=== PATIENT | female | born 1990 | race Asian ===

== ENCOUNTER 2018-04-10 06:08 | Emergency (ER) | payer OTHER ==
[2018-04-10 06:22] VITALS: BP 107/66
--- NOTE | 2018-04-10 07:48 | ED ---
HPI Febrile Illness - HPI Summary HPI Summary: Patient is an otherwise healthy 27-year-old female presenting to the ED with acute onset of fever, headache and neck pain early this morning around 1 AM. She states she is feeling much improved, but wanted to make sure she did not have an infection. She denies any photophobia. Denies any chest pain, shortness of breath, abdominal pain, nausea, vomiting, diarrhea, constipation. She states she is otherwise healthy and takes no medications. No significant PMH. is at bedside who is currently translating. Headache is 4/10, and located over the temples. She has never had anything like this before. Denies travel or sick contacts. She endorses some neck stiffness, but denies any limitations with mobility. Denies any body aches. - History of Current Complaint Chief Complaint: EDGeneral Time Seen by Provider: 04/10/18 06:34 Hx Obtained From: Patient Onset/Duration: Started Hours Ago Timing: Constant Initial Severity: Moderate Current Severity: Mild Pain Intensity: 4 Pain Scale Used: 0-10 Numeric Aggravating Factors: Nothing Alleviating Factors: Nothing Associated Signs and Symptoms: Chills, Diaphoresis, Headache, Stiff Neck - Risk Factors Pseudomonas Risk Factors: Negative Serious Bacterial Infection Risk Factors: Negative - Allergy/Home Medications Allergies/Adverse Reactions: Allergies Allergy/AdvReac Type Severity Reaction Status Date / Time No Known Allergies Allergy Verified 04/10/18 06:19 PMH/Surg Hx/FS Hx/Imm Hx Previously Healthy: Yes - Immunization History Hx Pertussis Vaccination: No Immunizations Up to Date: Yes Infectious Disease History: No Infectious Disease History: Denies: Traveled Outside the [place] in Last 30 Days - Social History Occupation: Unemployed Lives: With Family Alcohol Use: Rare Hx Substance Use: No Substance Use Type: Reports: None Hx Tobacco Use: No Smoking Status (MU): Never Smoked Tobacco Review of Systems Positive: Fever, Chills, Skin Diaphoresis Negative: Photophobia, Blurred Vision, Diplopia, Drainage Negative: Sore Throat, Nasal Discharge Negative: Palpitations, Chest Pain Negative: Shortness Of Breath, Cough Negative: Abdominal Pain, Vomiting, Diarrhea, Nausea Genitourinary: Negative Positive: no symptoms reported, see HPI Positive: Arthralgia - neck stiffness. Negative: Myalgia Skin: Negative Positive: Headache. Negative: Weakness, Paresthesia, Numbness Psychological: Normal All Other Systems Reviewed And Are Negative: Yes Physical Exam Triage Information Reviewed: Yes Vital Signs On Initial Exam: Initial Vitals Temp Pulse Resp BP Pulse Ox 97.1 F 82 16 107/66 97 04/10/18 06:17 04/10/18 06:17 04/10/18 06:17 04/10/18 06:17 04/10/18 06:17 Vital Signs Reviewed: Yes Appearance: Positive: Well-Appearing, Well-Nourished Skin: Positive: Skin Color Reflects Adequate Perfusion Head/Face: Positive: Normal Head/Face Inspection Eyes: Positive: EOMI, YULIYA, Conjunctiva Clear Neck: Positive: Supple, No Lymphadenopathy Respiratory/Lung Sounds: Positive: Clear to Auscultation, Breath Sounds Present Cardiovascular: Positive: RRR, Pulses are Symmetrical in both Upper and Lower Extremities. Negative: Leg Edema Left, Leg Edema Right Abdomen Description: Positive: Nontender, No Organomegaly, Soft Bowel Sounds: Positive: Present Musculoskeletal: Positive: Normal, Strength/ROM Intact Neurological: Positive: Sensory/Motor Intact, Alert, Oriented to Person Place, Time, Speech Normal Psychiatric: Positive: Normal, Affect/Mood Appropriate AVPU Assessment: Alert Diagnostics - Vital Signs Vital Signs Temp Pulse Resp BP Pulse Ox 04/10/18 06:17 97.1 F 82 16 107/66 97 - Laboratory Result Diagrams: 04/10/18 07:39 Lab Statement: Any lab studies that have been ordered have been reviewed, and results considered in the medical decision making process. Course/Dx - Course Course Of Treatment: During the course treatment, the patient is evaluated for acute onset fever at 1 AM. On arrival her vital signs are stable and she is afebrile. On physical examination, patient is slightly diaphoretic, however is nontoxic appearing. Lungs CTA. RRR. Moist mucous membranes. No abdominal pain on deep palpation throughout. Good neck mobility no stiffness identified. Negative Brudzinski's. Discussed treatment options with patient and patient declines fluids. She would however like some blood work. She declines any Tylenol or ibuprofen. - Febrile Illness Differential Diagnoses: Fever of Unknown Origin - Diagnoses Provider Diagnoses: Fever Discharge - Sign-Out/Discharge Documenting (check all that apply): Patient Departure - Discharge Plan Condition: Stable Disposition: HOME Patient Education Materials: Fever in Adults (ED) Referrals: No Primary Care Phys,NOPCP [Primary Care Provider] - Additional Instructions: If you develop any worsening symptoms, fever, sensitivity to the light, stiff neck, return to the ED immediately Tylenol 650 mg 3 times daily 2 days (this may be purchased [id number] at a store) If you improve over the next few days, you do not need to return to the ED Rest, drink plenty of water and gatorade Drew diet, chicken noodle soup, rice. - Billing Disposition and Condition Condition: STABLE Disposition: Home
[2018-04-10 07:57] LABS: ABS Basophils 0 10^3/ul (0-0.2); ABS Eosinophils 0 10^3/ul (0-0.6); ABS Lymphocytes 0.4 10^3/ul (1.0-4.8); ABS Monocytes 0.7 10^3/ul (0-0.8); ABS Neutrophils 10.1 10^3/ul (1.5-7.7); ABS Nucleated RBC 0 10^3/ul; Eosinophil % 0 % (0-6); Hematocrit 35 % (35-47); Hemoglobin 11.8 g/dl (12.0-16.0); Lymphocyte % 3.8 % (25-47); Mean Corpuscular HGB Conc 33 g/dl (31-36); Mean Corpuscular Hemoglobin 30 pg (27-31); Mean Corpuscular Volume 90 fL (80-97); Mean Platelet Volume 8.2 fL (7.4-10.4); Nucleated Red Blood Cells % 0; Platelet Count 169 10^3/ul (150-450); Red Blood Count 3.91 10^6/ul (4.00-5.40); Red Cell Distribution Width 14 % (10.5-15); White Blood Count 11.2 10^3/ul (3.5-10.8)
[2018-04-10 08:49] LABS: EGFR Non-African American 94.3 (>60)
== END 2018-04-10 08:37 | disposition home or self-care (01) ==
LOC: ED 06:08
DX: R50.9 Fever, unspecified (principal)
CPT/HCPCS: 36415; 80053; 85025; 86140; 99282

== ENCOUNTER 2018-04-11 12:14 | Emergency (ER) | payer OTHER ==
--- NOTE | 2018-04-11 13:07 | UC ---
Abdominal Pain Female HPI - HPI Summary HPI Summary: 27 yo female presents with fever and RUQ abdominal pain and right flank pain. Pt does not speak Bulgarian, therefore the history and interview is aided by her friend with her today acting as her supply chain tech. She tells me that she began to feel sick yesterday. She had a temp of 40C and vomited once. She went to the ED and was found to be afebrile with a slightly elevated CRP and WBC. Influenza swab was negative. It was suspected she had a viral illness. Today she presents to the UC with fever and RUQ and right flank pain. She has not taken anything OTC for her symptoms. She is eating and drinking well. Denies SOB, chest pain, n /v, dysuria, vaginal bleeding or discharge. 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 Hx Last Menstrual Period: 04/10/18 Onset/Duration: Gradual Onset Severity Initially: Mild Severity Currently: Moderate Pain Intensity: 6 Pain Scale Used: 0-10 Numeric Allergies/Adverse Reactions: Allergies Allergy/AdvReac Type Severity Reaction Status Date / Time No Known Allergies Allergy Verified 04/11/18 12:54 Home Medications: Home Medications Acetaminophen [APAP] 325 mg PO ONCE PRN 04/11/18 [History Confirmed 04/11/18] PMH/Surg Hx/FS Hx/Imm Hx - Additional Past Medical History Additional PMH: None - Surgical History Surgical History: None - Family History Known Family History: Positive: None - Social History Lives: With Family Alcohol Use: Occasionally Substance Use Type: None Smoking Status (MU): Never Smoked Tobacco Review of Systems Constitutional: Fever Skin: Negative Eyes: Negative ENT: Negative Respiratory: Negative Cardiovascular: Negative Gastrointestinal: Abdominal Pain Genitourinary: Other - Right flank pain Musculoskeletal: Negative Neurological: Negative Psychological: Negative All Other Systems Reviewed And Are Negative: Yes Physical Exam - Summary Physical Exam Summary: GENERAL: NAD. Mild pain distress SKIN: No rashes, sores, lesions, or open wounds. NECK: Supple. Nontender. No lymphadenopathy. CHEST: CTAB. No r/r/w. No accessory muscle use. Breathing comfortably and in no distress. CV: RRR. Without m/r/g. Pulses intact. Cap refill <2seconds ABDOMEN: Mild RUQ TTP. Mild right CVA TTP. Soft. No distention or guarding. No organomegaly. Bowel sounds present NEURO: Alert. PSYCH: Age appropriate behavior. Triage Information Reviewed: Yes Vital Signs: Initial Vital Signs Temp 101.7 F 04/11/18 12:48 Pulse 94 04/11/18 12:48 Resp 18 04/11/18 12:48 BP 112/66 04/11/18 12:48 Pulse Ox 99 04/11/18 12:48 Laboratory Tests 04/11/18 13:47 POC Urine Color Yellow POC Urine Clarity Cloudy POC Urine pH 6.0 POC Ur Specif [place] <= 1.005 L POC Urine Protein Negative POC Ur Glucose (UA) Negative POC Urine Ketones Negative POC Urine Blood 2+ A POC Urine Nitrite Positive A POC Urine Bilirubin Negative POC Urine Urobilinogen 0.2 POC U Leukocyte Esteras 1+ A Vital Signs: Temp Pulse Resp BP Pulse Ox 100.7 F 70 18 98/55 100 04/11/18 15:56 04/11/18 15:56 04/11/18 15:56 04/11/18 15:56 04/11/18 15:56 Vital Signs Reviewed: Yes Abd Pain Female Course/Dx - Course Course Of Treatment: CT: IMPRESSION: Normal appendix. There is a large structure adjacent to the uterus likely. representing an enlarged right ovary measuring up to 6.3 x 4.6 cm. Free fluid is noted in the pelvis. UA with signs of infection. Urine was negative. CT without visulized calculi. Therefore, I suspect she has pyelonephritis or an ascending UTI. In the clinic she was given 1L NS with 1gm Ceftriaxone for pyelonephritis. Toradol 30mg for her headache/discomfort and Tylenol 650mg for her fever. She had significant improvement of her symptoms and reported no pain. Temperature improved to 100.7F. Pt appeared well and was more comfortable and smiling. Will dc her with dx of pyelonephritis and rx for cipro. Advised to alternate tylenol/ibuprofen for her fever and discomfort. Strongly advised that if her symptoms worsen or if she develops new symptoms - to go to the ED. Pt verbalized understanding. - Differential Dx/Diagnosis Provider Diagnoses: Pyelonephritis Discharge - Sign-Out/Discharge Documenting (check all that apply): Patient Departure All imaging exams completed and their final reports reviewed: Yes - Discharge Plan Condition: Stable Disposition: HOME Prescriptions: Ciprofloxacin HCl [Cipro] 500 mg PO BID #14 tablet Patient Education Materials: Urinary Tract Infection in Women (ED), Kidney Infection (ED) Referrals: No Primary Care Phys,NOPCP [Primary Care Provider] - Additional Instructions: If you develop a fever, shortness of breath, chest pain, new or worsening symptoms - please call your PCP or go to the ED. 1) Continue to take tylenol alternating with ibuprofen for fever and discomfort 2) If your fever or pain worsen - please go to the ER for further evaluation - Billing Disposition and Condition Condition: STABLE Disposition: Home
[2018-04-11] MEDS ORDERED: Ibuprofen TAB* 400 MG PO ONE (13:25)
[2018-04-11] MEDS ORDERED: Ketorolac INJ* 30 MG/ML 1 ML VIAL IV PUSH ONE (13:57)
[2018-04-11] MEDS ORDERED: cefTRIAXone VIAL(*) 1,000 MG VIAL IVPB ONE (13:57)
[2018-04-11] MEDS ORDERED: NS 0.9% 1000 ML* 1,000 ML IV ONE (13:57)
[2018-04-11] MEDS ORDERED: Acetaminophen TAB* 325 MG PO ONE (14:04)
[2018-04-11 16:30] VITALS: BP 99/59
== END 2018-04-11 16:30 | disposition home or self-care (01) ==
LOC: UCEAST 12:14
DX: N10 Acute pyelonephritis (principal); Z32.02 Encounter for pregnancy test, result negative
CPT/HCPCS: 74176; 81003; 84702; 87077; 87086; 87186; 96361; 96365; 96376; 99212; A9270-GY; G0463; J0696; J1885

== ENCOUNTER 2018-04-12 14:10 | Emergency (ER) | payer OTHER ==
[2018-04-12] MEDS ORDERED: Ketorolac INJ* 30 MG/ML 1 ML VIAL IV PUSH ONE (14:40)
[2018-04-12] MEDS ORDERED: NS 0.9% 1000 ML* 1,000 ML IV ONE (14:40)
[2018-04-12] MEDS ORDERED: Ondansetron INJ* 2 MG/ML VIAL IV ONE (14:40)
--- NOTE | 2018-04-12 14:53 | ED ---
HPI Febrile Illness - HPI Summary HPI Summary: This pt is a 27 y/o female presenting to [facility] c/o fever, body aches and right flank pain. Pt speaks Bermudian and her is translating for her. Pt reports she has had right flank pain for 3 days now. She states her temperature max today was 104F. Pt took Tylenol with relief. Denies nausea, vomiting, hematuria, cough, runny nose, sore throat, dysuria, vaginal discharge, vaginal bleeding, pelvic pain. Pt was seen in the ED 2 days ago. She was also seen yesterday at Urgent Care where she was diagnosed with pyelonephritis and discharged home with antibiotics , Ciprofloxacin. She had an abdomen/pelvis CT that showed normal appendix but her urine had signs of infection. - History of Current Complaint Chief Complaint: EDGeneral Time Seen by Provider: 04/12/18 14:38 Hx Obtained From: Patient, Family/Car Hop - Hx Last Menstrual Period: 04/10/18 Onset/Duration: Started Hours Ago, Still Present Timing: Lasting Hours Current Severity: Moderate Pain Intensity: 7 - right flank Pain Scale Used: 0-10 Numeric Aggravating Factors: Nothing Alleviating Factors: Nothing Associated Signs and Symptoms: Other: - POSITIVE: body aches, right flank pain. NEGATIVE: nausea, vomiting, hematuria, cough, runny nose, sore throat, dysuria, vaginal discharge, vaginal bleeding, pelvic pain. - Allergy/Home Medications Allergies/Adverse Reactions: Allergies Allergy/AdvReac Type Severity Reaction Status Date / Time No Known Allergies Allergy Verified 04/12/18 14:24 Home Medications: Home Medications Acetaminophen TAB* [Tylenol TAB*] 325 mg PO Q6HR PRN 04/12/18 [History Confirmed 04/12/18] Ciprofloxacin TAB* [Cipro 500 MG TAB*] 500 mg PO BID 04/12/18 [History Confirmed 04/12/18] PMH/Surg Hx/FS Hx/Imm Hx Endocrine/Hematology History: Denies: Hx Diabetes Cardiovascular History: Denies: Hx Hypertension Infectious Disease History: No Infectious Disease History: Denies: Traveled Outside the [place] in Last 30 Days - Family History Known Family History: Negative: Cardiac Disease, Hypertension, Diabetes - Social History Alcohol Use: Occasionally Hx Substance Use: No Substance Use Type: Reports: None Hx Tobacco Use: No Smoking Status (MU): Never Smoked Tobacco Review of Systems Positive: Fever Negative: Sore Throat, Nasal Discharge Negative: Cough Negative: Vomiting, Nausea Positive: flank pain - right. Negative: dysuria, hematuria, pain, other - vaginal bleeding, vaginal discharge, pelvic pain Positive: Myalgia All Other Systems Reviewed And Are Negative: Yes Physical Exam - Summary Physical Exam Summary: Appearance: Well appearing, no pain distress Skin: warm, dry, reflects adequate perfusion Head/face: normal Eyes: EOMI, YULIYA ENT: Ears with serous effusions. Neck: supple, non-tender. Negative Kernig and Brudzinski sign. Respiratory: CTA, breath sounds present Cardiovascular: RRR, pulses symmetrical Abdomen: non-tender, soft. No CVA tenderness. Bowel: present Musculoskeletal: normal, strength/ROM intact Neuro: normal, sensory motor intact, A&Ox3 Triage Information Reviewed: Yes Vital Signs On Initial Exam: Initial Vitals Temp Pulse Resp BP Pulse Ox 98.6 F 82 22 118/85 98 04/12/18 14:20 04/12/18 14:20 04/12/18 14:20 04/12/18 14:20 04/12/18 14:20 Vital Signs Reviewed: Yes Diagnostics - Vital Signs Vital Signs Temp Pulse Resp BP Pulse Ox 04/12/18 14:20 98.6 F 82 22 118/85 98 - Laboratory Result Diagrams: 04/12/18 14:53 04/12/18 14:53 Lab Statement: Any lab studies that have been ordered have been reviewed, and results considered in the medical decision making process. Re-Evaluation - Re-Evaluation First Eval Re-Evaluation Time: 16:50 Change: Improved Comment: Pt feels better. Course/Dx - Course Course Of Treatment: Patient with recent urgent care and ER evaluations which determined she had urinary tract infection possible pyelonephritis causing right -sided discomfort. CT scan was negative including a normal appendix. Her pain is mostly in the right flank and mild at this time. There is resolved after IV fluids and Toradol. Repeat urine today is fairly clean. She does have bilateral serous effusions in the ears and a feeling of fullness there. This is accompanied by minor URI symptoms. They were under the understanding that any fevers she should return to the ER. I have provided more extensive return instructions and also suggested [facility] follow-up for them. Primary care referral was given. She is discharged in good condition to continue on outpatient Cipro. - Febrile Illness Differential Diagnoses: Abd. Infection, Fever of Unknown Origin, Pneumonia, Sepsis, Other: - UTI, pyelonephritis, upper respiratory infection - Diagnoses Provider Diagnoses: UTI (urinary tract infection), URI (upper respiratory infection) Discharge - Sign-Out/Discharge Documenting (check all that apply): Patient Departure - Discharge home - Discharge Plan Condition: Improved Disposition: HOME Prescriptions: Guaifenesin/Pseudo 600/60(NF) [Mucinex D 600/60 (NF)] 1 tab PO BID PRN #12 tab PRN Reason: Congestion Ibuprofen TAB* [Advil TAB*] 200 mg PO Q8H PRN #20 tab PRN Reason: Fever Patient Education Materials: Urinary Tract Infection in Women (ED), Upper Respiratory Infection (ED) Referrals: [facility] [Outside] [facility] [place] [facility]ERR[facility] [Outside] Additional Instructions: Stay well-hydrated. Take Tylenol or ibuprofen as needed for fever or body aches. Mucinex D is for congestion in the ears. [facility] can provide follow-up to her in 1-2 days' time. Call first thing in the morning for an appointment. Return to the ER with significant worsening, high fevers, repetitive vomiting or other concerns as discussed. - Billing Disposition and Condition Condition: IMPROVED Disposition: Home - Attestation Statements Document Initiated by Ramone: Yes Documenting Scribe: Shavon Roberson Provider For Whom Ramone is Documenting (Include Credential): Stu Lubin MD Scribe Attestation: Shavon Be, scribed for Stu Lubin MD on 04/12/18 at 1820. Scribe Documentation Reviewed: Yes Provider Attestation: The documentation as recorded by the Shavon pryor accurately reflects the service I personally performed and the decisions made by me, Stu Lubin MD
[2018-04-12] MEDS ORDERED: cefTRIAXone(*) 1 GM in NS 0.9% 50 ML* 50 ML IVPB ONE (14:55)
[2018-04-12 14:59] LABS: ABS Basophils 0 10^3/ul (0-0.2); ABS Eosinophils 0 10^3/ul (0-0.6); ABS Lymphocytes 0.7 10^3/ul (1.0-4.8); ABS Monocytes 1.1 10^3/ul (0-0.8); ABS Neutrophils 7.9 10^3/ul (1.5-7.7); ABS Nucleated RBC 0 10^3/ul; Eosinophil % 0.1 % (0-6); Hematocrit 32 % (35-47); Hemoglobin 10.9 g/dl (12.0-16.0); Lymphocyte % 7.1 % (25-47); Mean Corpuscular HGB Conc 34 g/dl (31-36); Mean Corpuscular Hemoglobin 31 pg (27-31); Mean Corpuscular Volume 89 fL (80-97); Mean Platelet Volume 8.3 fL (7.4-10.4); Nucleated Red Blood Cells % 0.1; Platelet Count 168 10^3/ul (150-450); Red Blood Count 3.56 10^6/ul (4.00-5.40); Red Cell Distribution Width 14 % (10.5-15); White Blood Count 9.7 10^3/ul (3.5-10.8)
[2018-04-12 15:25] LABS: EGFR Non-African American 84.8 (>60)
[2018-04-12 17:09] LABS: Urine Appearance Clear; Urine Blood Negative (Negative); Urine Color Yellow; Urine Ketones 1+ (Negative); Urine Protein Negative (Negative); Urine Red Blood Cell Absent (Absent); Urine Specific Gravity 1.004 (1.010-1.030); Urine Urobilinogen Negative (Negative); Urine White Blood Cell Trace(0-5/hpf) (Absent)
[2018-04-12 18:10] VITALS: BP 99/70
== END 2018-04-12 18:09 | disposition home or self-care (01) ==
LOC: ED 14:10
DX: N39.0 Urinary tract infection, site not specified (principal); J06.9 Acute upper respiratory infection, unspecified
CPT/HCPCS: 36415; 80048; 81003; 81015; 83605; 85025; 87086; 96365; 96375; 99283; J0696; J1885; J2405